=== PATIENT | male | born 1935 | race Caucasian/White ===

== ENCOUNTER 2016-12-23 16:00 | Emergency (ER) | payer OTHER ==
[2016-12-23] MEDS ORDERED: NORMAL SALINE 10 ML SYRINGE FLUSH IVP PRN (16:12)
[2016-12-23] MEDS ORDERED: BACITRACIN 0.9 GM PACKET OINT TOPICAL ONE (16:12)
--- NOTE | 2016-12-23 16:20 | PDOC ---
Hand / Wrist Injury HPI - General Chief Complaint: Upper Extremity Problem/Injury Stated Complaint: R hand injury Date Seen by Provider: 12/23/16 Time Seen by Provider: 04:10 Source: POSITIVE: Patient Exam Limitations: POSITIVE: No limitations Nurse's Notes Reviewed & Considered: Yes - History of Present Illness Initial Comments: The patient is an 81-year-old male who presents to the emergency department with the skin tear to the right hand. He states that he bumped his hand causing a small superficial tear. He has had these previously. He denies any associated hand pain or any other associated complaints. He does take blood thinners and is diabetic. He does not remember his medications and [facility] so we do not have a list. He is requesting the skin tear flap off because he states he does better with healing if we go ahead and remove the flap. He has apparently had problems in the past when they have tried to Steri-Stripped these wounds. Have you received a tetanus shot in the past 10 years?: Unknown - Patient Home Medications Home Medications: Home Medications Eplerenone 50 mg PO DAILY 02/26/15 Metoprolol Succinate 2 tab PO BID 02/26/15 Nitroglycerin 0.4 mg SL PRN 02/26/15 Potassium Chloride 4 tab-cap PO TID 02/26/15 Aspirin 81 mg PO DAILY tab 03/07/15 Clopidogrel Bisulfate [Clopidogrel] 1 tab PO DAILY tab 03/07/15 Docusate Calcium 2 cap PO DAILY cap 03/07/15 Ezetimibe [Zetia] 10 mg PO DAILY tab 03/07/15 Furosemide 2 - 3 tab PO DAILY tab 03/07/15 Isosorbide Mononitrate [Isosorbide Mononitrate Er] 60 mg PO DAILY tab 03/07/15 Lisinopril 1 tab PO DAILY tab 03/07/15 Warfarin Sodium 1 tab PO as directed. tab 03/07/15 Oxygen (O2) 1 unit INH Continuous #3 unit 05/20/15 Oxycodone HCl/Acetaminophen [Oxycodone-Acetaminophen 5-325] 1 - 2 tab PO Q4-6H # 60 tab 05/30/15 - Patient Allergies Allergies/Adverse Reactions: Allergies Allergy/AdvReac Type Severity Reaction Status Date / Time Grfmhyo-Mot-Koo Reductase Allergy RASH Verified 12/23/16 16:12 Inhibitor Past Medical History - heen HEENT History: Other (please comment) Additional HEENT History: "DIABETIC EYES IN BOTH EYES" Cardiovascular History: Hypertension, Angina, Previous IL, CAD, Arrhythmia, Internal Defibrillator, Hyperlipidemia Additional Cardiovasular History: CARDIAC STENTS X 6 Respiratory History: Sleep Apnea, Home Oxygen Use Additional Respiratory History: PREVIOUS SMOKERON CONT O2 @ 2-3L/MIN PER NC Gastrointestinal History: Denies History Genitourinary History: Denies History Endocrine History: Other (please comment) Additional Endocrine History: "i USED TO HAVE DIABETES BUT DON'T HAVE IT ANYMORE " Musculoskeletal History: Arthritis Additional Musculoskeletal History: IN KNEES AND ANKLES Neurological History: Other (please comment) Additional Neurological History: "MIGHT HAVE HAD A STROKE A FEW TIMES" HOWEVER DID NOT SEEK TREATMENT AT THAT TIME Blood Disorders: Clotting Disorders Psychiatric History: Denies History Cancer History: Skin History of MDRO: Unknown Alcohol Use: None Substance Use Type: None Previous Surgical History: Yes Type / Date of Surgery: MULTIPLE "I CAN'T REMEMBER" ALL OF THEM Significant Family History: Heart disease, Hypertension Past Medical History Reviewed: Reviewed - No Changes ROS - Limitations ROS Limitations: No Limitations (Review of systems otherwise noncontributory) Hand / Wrist Injury Exam - General Appearance General Appearance: POSITIVE: Alert, Cooperative, No Acute Distress - Extremities Upper Extremity: POSITIVE: Other (examination of the right hand does reveal approximately a 1.5 cm flap laceration to the dorsum of his hip which is a superficial skin tear. There is no active bleeding, no bony deformity or tenderness.) Hand / Wrist Injury Progress - Patient's Progress MDM / ED Course: The superficial skin tear was removed with Iris scissors after cleaning the wound with saline as per patient request. Dressing will be applied and wound care instructions were discussed with the patient is advised return to the emergency room if he develops any sign of infection, worsening or change in symptoms. He is advised follow-up with his primary care provider as needed. - Consult Counseled: POSITIVE: Patient, RE: DX, RE: Need for F/U Patient Care Time - Estimated PCT Patient Care Time (In Minutes): 10 Vital Signs - VS Reviewed Vital Signs Reviewed: Yes Discharge Clinical Impression: Skin tear of hand without complication Discharge Disposition: Discharged to Home Condition: Stable Patient Instructions Given at Discharge: Skin Tear (ED) Additional Instructions: You did have a superficial skin tear to the right hand which was removed as per your request. A dressing will be applied. Recommend dressing changes as needed. Return to the emergency room if increased swelling or drainage from the wound, fever or increased pain, any worsening or change in symptoms. Follow -up with primary care as needed. Follow Up With: NONE,NONE [Primary Care Provider] -
[2016-12-23] MEDS ORDERED: DIPH,PERTUSS,TET(ADACEL) VAC/PF 0.5 ML (Tdap) IM ONE (16:30)
[2016-12-23 16:45] VITALS: RESP 14; TEMP 97.7
== END 2016-12-23 16:35 | disposition home or self-care (01) ==
LOC: ER 16:00
DX: S61.411A Laceration without foreign body of right hand, initial encounter (principal); W22.8XXA Striking against or struck by other objects, initial encounter
CPT/HCPCS: 99282

== ENCOUNTER → 2017-05-29 | Outpatient (CLI) | payer OTHER ==
--- NOTE | 2017-05-29 12:15 | DI ---
CT ABDOMEN SCAN WITHOUT AND WITH IV CONTRAST, 05/29/2017 9:28 AM : Clinical History: Microscopic hematuria. Previous Exam: 07/01/2015. Scans are performed from the lower lung bases through the liver and kidneys without and with IV contr ast. Sagittal and coronal images are generated. 15 minutes prior to the postcontrast scans, 45 mL of Isovue 300 was injected. A second bolus of contrast of 45 mL of Isovue 300 was then injected and scan s of the abdomen and pelvis were performed one minute later. There is no infiltrate or effusion. Multiple small 2-3 mm punctate calcifications are present in the right lower lobe and involving the pleura of the right middle lobe and extending into the right major fissure. These may represent calcified granulomata secondary to prior exposure to TB or histoplasmos is or coccidiomycosis. Prior exposure to asbestos cannot be excluded. The liver is normal. The gallbl adder is moderately well distended and has multiple calcified gallstones in the range of 5-10 mm. The re is no edema of the gallbladder or periserosal change to indicate there is acute cholecystitis. The re is no abnormality of the spleen, pancreas, and adrenal glands. Both kidneys are normal in size, sh ape, and position. Along the superior and lateral margin of the right kidney is a spherical lesion ar ising from the cortex measuring about 12 mm in diameter. This lesion is of low density in the range o f 20-22 Hounsfield units and does not show enhancement following contrast. There are dense calcificat ions around the perimeter of the lesion. Review of the previous CT scan from 07/01/2015 shows that thi s was present as well and has not changed. It is consistent with an atypical renal cyst. There is no hydronephrosis or hydroureter. No renal or ureteral calculi are present. No filling defects are prese nt in either ureter. The bladder is normal. There is prosthetic enlargement. There are no abnormal re trocrural or periaortic nodes. There is no ascites. READIN. There is a 12 mm atypical partially calcified nodule arising from the upper pole of the right kid gillian. This lesion does not show enhancement and has a Hounsfield measurement between 20-22 units. This is probably a benign atypical cyst. Both kidneys and ureters and the bladder are normal. There is pr ostatic hypertrophy. 2. Cholelithiasis without evidence of cholecystitis. The remainder of the scans of the abdomen are n ormal. 3. There are numerous punctate calcifications in the right lower lobe and along the lateral portion of the right lower lobe and extending into the right major fissure. These may be secondary to old gra nulomatous disease. Asbestosis cannot be excluded. CT PELVIS SCAN WITHOUT AND WITH IV CONTRAST, 05/29/2017 9:28 AM: Clinical History: See above. Previous Exam: 07/01/2015. Scans are performed from just superior to the umbilicus to the symphysis pubis without and with IV co ntrast. This is the same bolus of IV contrast used for the CT scans of the abdomen. Scans through the lower abdomen and pelvis show no masses or abnormal fluid collections. There is no adenopathy. The appendix is normal. The small bowel, terminal ileum, and ileocecal valve are intact. The colon is also normal. There are no hernias. READING: Normal CT scan of the pelvis.
== END ==
LOC: CT 09:07
PROVIDERS: ATTEND Urology
DX: R31.29 Other microscopic hematuria (principal); K80.20 Calculus of gallbladder without cholecystitis without obstruction
CPT/HCPCS: 36415; 74178; 82565